=== PATIENT | male | born 1985 | race Caucasian/White ===

== ENCOUNTER 2016-08-30 17:17 | Emergency (ER) | payer SELFPAY ==
[~2016-08-30] VITALS: Ht 175.3 cm; Wt 65.0 kg
[2016-08-30 19:57] VITALS: BP 115/76
== END 2016-08-30 19:59 | disposition left against medical advice (07) ==
LOC: ER 19:18
DX: G43.909 Migraine, unspecified, not intractable, without status migrainosus (principal); F17.200 Nicotine dependence, unspecified, uncomplicated; Z98.890 Other specified postprocedural states